=== PATIENT | male | born 1960 | race Caucasian/White ===

== ENCOUNTER 2024-05-02 20:46 | Observation (INO) ==
--- OUTSIDE RECORDS SUMMARY | 2024-05-02 20:51 | External Medical Summary | Summary of Care ---
Author Name Unknown Organization [facility] Address [address] [place] [address] Phone [phone] Care Team Providers Care Aviation Electronic Warfare Operator Name Role Phone Winnie Andre DO Primary Care Provider Reason for Referral * Evaluate & Treat - Unlimited Visits (Within 30 days (routine)) - Authorized Specialty Diagnoses / Procedures Referred By Parvin rodriguez Referred To Contact Dermatology Diagnoses Malignant melanoma of upper extremity, unspecified laterality (HCC) Winnie Andre DO [address] [facility] [address] Antonio Montana MD [address] [place] [id number] Referral ID Status Reason Start Date Expiration Date Visits Requested Visits Authorized [id number] Authorized Specialty Services Required 4 [phone] Question Answer Referral Priority Within 30 days (routine) Where should this appointment be scheduled? [facility] Are you referring the patient for Mohs Surgery and have a current positive skin cancer biopsy result? No What is the reason for the patient referral? Return for previous melanoma Reason for Visit * Reason Onset Date Comments Physical-Exam CPE annual Medication Administration 02/20/2024 Flu an d/or Pneumo Inj Encounter Details Date Type Department Care Team (Late st Contact Info) Description 02/20/2024 3:40 PM EDT [facility] [address] [facility] [address] Winnie Andre, DO [address] [place] [address] Dyslipidemia, goal LDL below 160*; Need for prophylactic vaccination and inoculation against influenza; Essential hypertension with goal blood pressure less than 140/90; Malignant melanoma of upper extremity, unspecified laterality (HCC); BPH without obstruction/lower urinary tract symptoms; Vitamin D deficiency Allergies Active Allergy Reactions Criticality Noted Date Comments Hydrocodone-Acetaminophen Nausea/vomiting 01/26 Oxycodone Hcl Rash Medium 05/05/2008 documented as of this encounter (statuses as of 02/20/2024) Medications Medication Sig Dispensed Refills Start Date End Date Status valACYclovir (VALTREX) 1000 MG TabletIndications:H istory of cold sores At onset of cold sore, take 2 pills then repeat in 12 hours, then off 4 Tab 2 07/24/2018 Active Additional Information Patient not taking.Reported on 02/20/2024 Lisinopril 10 MG Oral Tablet (Prinivil) take 1 tablet by mouth once daily 90 Tablet 3 05/16/2023 Active Atorvastatin Calcium 10 MG Oral Tablet (Lipitor)Indication s:Dyslipidemia, goal LDL below 160 Take 1 Tablet by mouth at bedtime. 90 Tablet 3 05/14/2023 Active Additional Information Patient not taking.Reported on 02/20/2024 documented as of this encounter (statuses as of 02/20/2024) Active Problems Problem Noted Date Diagnosed Date Well adult exam 02/14/2023 BPH without obstruction/lower urinary tract symp toms 02/14/2023 ETD (Eustachian tube dysfunction), bilateral Dyslipidemia, goal LDL below 160 05/28/2017 Essential hypertension with goal blood pressure less than 140/90 03/01/2016 History of basal cell carcinoma 06/21/2015 Stucco keratosis 10/22/2013 Multiple pigmented nevi 10/22/2013 Malignant melanoma of upper limb 05/22/2013 Actinic keratosis 04/15/2013 History of malignant melanoma of skin 04/15/2013 Overview: Hx MM date 04/2013 & 2000, Depth 0.36mm 1 mitotic figure & 2.1 mm respectively , Location Right upper arm & left flank respectively SLN negative on both occasions Calculus of kidney 05/05/2008 ADVANCE DIRECTIVE INFORMATION 09/25/2005 Overview: Booklet given to ptCamilla BARRY MELANOMA TRUNK 01/22/2000 documented as of this encounter (statuses as of 02/20/2024) Resolved Problems Problem Noted Date Diagnosed Date Resolved Date Hemorrhoids, external without complications 05/28/2017 12/21/2019 Neoplasm of uncertain behavior of skin 04/15/2013 03/08/2015 Dyslipidemia, goal to be determined 04/21/2009 05/28/2017 Overview: Per Lipid Taxonomy. Elevated blood pressure, situational 05/02/2005 01/19/2010 PURE HYPERCHOLESTEROLEM 01/30/200104/12 Overview: Per Lipid Taxonomy. documented as of this encounter (statuses as of 02/20/2024) Immunizations Name Administration Dates Next Due COVID-19 mRNA, LNP-s, No Pre serve, 2-Dose Series ([employer]) 10/05/2021,04/28/2021,08/11/2020,2020 COVID-19, MRNA-LNP, 23-24, P F, 30 MCG/0.3 mL, 12 YRS AND ABOVE, IM (PFIZER-Comirnat) 02/20/2023 Covid-19, Mrna, Lnp-s, Pf, B ivalent, 30 Mcg, IM, 12 yrs and above (Pfizer) 05/15/2022 Seasonal Influenza Vac., MDV , IM, 0.5 mL (Fluzone) 03/01/2021,02/24/2015,02/25/2014,2012,02/25/2012 Seasonal Influenza, PF, 6 M & above, IM , (FluLaval or Fluzone) 02/08/2022,01/18/2018 Seasonal Influenza, Quadriva lent, No Preserve, IM 03/10/2023,02/11/2020 Seasonal Influenza, Recombin ant, Trivalent, PF (Flublock) 02/06/2016 Seasonal Influenza, Trivalen t, (IIV3), PF, (Fluzone) 02/20/2024 TD - Tetanus/Diptheria (ADULT) 06/01/2003 TDAP (age 10 and older)(Boostrix) 06/26/2022,04/2012 Zoster Vaccine Recombinant (Shingrix) 12/21/2019 ,01/18/2018 documented as of this encounter Social History Tobacco Use Types Packs/Day Years Used Date Smoking Tobacco: Never Smokeless Tobacco: Never Alcohol Use Standard Drinks/Week Comments Yes 0 (1 standard drink = 0.6 oz pur e alcohol) social PHQ-2 Answer Date Recorded PHQ Adult Total Score 0 02/08/2022 Hunger Vital Sign Answer Date Recorded Within the past 12 months, y ou worried that your food would run out before you got the money to buy more. Never true 02/07/20 24 Within the past 12 months, t he food you bought just didn't last and you didn't have money to get more. Never true 02/07/2024 Childcare Answer Date Recorded Do you feel overwhelmed with taking care of a child, family member or friend? No 02/07/2024 Does your family need help f inding childcare? (Household - for ages 0-17 years) Not on file 02/07/2024 Clothing Answer Date Recorded Have you been unable to get clothing when it was really needed? No 02/07/2024 Is your family able to get c lothes or diapers when needed? (Household - for ages 0-17 years) Not on file 02/07/2024 Personal Safety Answer Date Recorded Do you feel unsafe or have concerns for your saf ety? No 02/07/2024 Do you have concerns for you r family's safety? (Household - for ages 0-17 years) Not on file 02/07/2024 Utilities Answer Date Recorded Do you have trouble paying y our heating, water, or electric bill? No 02/07/2024 Is your family able to pay t he heat, water, or electric bill? (Household - for ages 0-17 years) Not on file 02/07/2024 Does your family have access to good internet? (Household - for ages 0-17 years) Not on file 02/07/2024 Employment Status Answer Date Recorded Are you unemployed or without regular income? No 02/07/2024 Does the household have a re gular source of income? (Household - for ages 0-17 years) Not on file 02/07/2024 Social Connections Answer Date Recorded How often do you feel lonely or isolated from th ose around you? Never 02/07/2024 Financial Resource Strain Answer Date R ecorded Do you have any trouble payi ng for your medications, or do you think you might in the future? No 02/07/2024 Does your family have troubl e paying for medicine? (Household - for ages 0-17 years) Not on file 02/07/2024 Transportation Needs Answer Date Record ed Do you have trouble getting a ride to medical visits or work? (Adult - for ages 18 years and over) Not on file 02/07/2024 Does your family have a hard time getting a ride to doctors visits? (Household - for ages 0-17 years) Not on file 02/07/2024 Has lack of transportation k ept you from medical appointments, meetings, work, or from getting things needed for daily living? Check all that apply. No 02/07/2024 Do you (or your family) have trouble finding or paying for a ride (transportation)? (Household - for ages 0-17 years) Not on file 02/07/2024 Housing Stability Answer Date Recorded Do you currently live in a s helter or have no steady place to sleep at night? No 02/07/2024 Do you think you are at risk of becoming homeless? (Adult - for ages 18 years and over) Not on file 02/07/2024 Does your family worry about paying for your home or becoming homeless? (Household - for ages 0-17 years) Not on file 0 02/07/2024 Are you homeless or worried that you might be in the future? No 02/07/2024 Are you (or your family) german eless or worried that you might be in the future? (Household - for ages 0-17 years) Not on file Food Insecurity Answer Date Recorded Do you need food for this week? No 02/07/2024 Are you able to get enough f ood for your family? (Household - for ages 0-17 years) Not on file 02/07/2024 Does your family need food t his week? (Household - for ages 0-17 years) Not on file 02/07/2024 Do you always have enough fo od for your family? (Household - for ages 0-17 years) Not on file 02/07/2024 Sex and Gender Information Value Date Recorded Sex Assigned at Male 12/21/2019 8:38 AM EDT Gender Identity Male 12/21/2019 8:38 AM EDT Sexual Orientation Straight 12/21/2019 8: 38 AM EDT Job Start Date Occupation Industry Not on file Not on file Not on file documented as of this encounter Last Filed Vital Signs Vital Sign Reading Time Taken Comments Blood Pressure 122/82 02/20/2024 3:00 PM EDT Pulse 64 02/20/2024 3:00 PM EDT Temperature 36.1 C (97 F) 02/20/2024 3:00 PM EDT Respiratory Rate - - Oxygen Saturation 96% 02/20/2024 3:00 PM EDT Inhaled Oxygen Concentration - - Weight 89.7 kg (197 lb 11.2 oz) 02/20/2024 3:00 PM EDT Height 179.1 cm (5' 10.5") 02/20/2024 3:00 PM ED T Body Mass Index 27.97 02/20/2024 3:00 PM EDT documented in this encounter Progress Notes * Winnie Andre, - 02/20/2024 3:40 PM EDT Images from the original note were not included. Assessment and Plan Assessment & Plan History of Present Illness Antonio Tejeda is a 63 year old male that presents for Physical-Exam (CPE annual ) and Medication Administration (Flu and/or Pneumo Inj) History of Present Illness Physical Exam Vitals: 02/20/24 1500 Temp: 36.1 C (97 F) Pulse: 64 SpO2: 96% BP: 122/82 BMI: 27.96 Wrap-Up Follow Up: Return in about 1 year (around 02/19/2025). Time: Total time today was 32 minutes excluding any time spent in the performance of separately billed services. Text in this note was generated using an ambient documentation service. I discussed the use of a device to record and summarize our discussion today. All persons present during the encounter consented to its use. * Aimee Encarnacion LPN - 02/20/2024 3:33 PM EDT PRE - ADMINISTRATION DOCUMENTATION Are you experiencing any cold symptoms or fever? No Have you had Guillain-[place] Syndrome (an illness that causes paralysis) within the last 6 weeks? No Have you had the flu shot in the past? YES Have you ever had a reaction to the flu shot? No Aimee Encarnacion LPN, 02/20/2024 3:33 PM Immunization Administration Documentation Time Out Procedure Performed: Yes Patient Identified (Ask Name/Date of ): Yes Does the patient have a fever greater than 101 degrees today? No Patient allergic to latex? No VFC Stock: No Immunization(s) verified: Yes, Immunization Name: Flu, VIS Sheet(s) given: Yes Verified Side and Site: Yes Verified Shot(s) with Parent(s)/Patient: Yes documented in this encounter Miscellaneous Notes * Addendum Note - Winnie Andre DO - 02/20/2024 4:28 PM EDTAddended by: WINNIE ANDRE on: 02/20/2024 04:28 PM Modules accepted: Orders documented in this encounter Plan of Treatment Upcoming Encounters Date Type Department Care Team (Late st Contact Info) Description 02/25/2025 4:00 PM EDT Office Visit Family [facility] [address] [place] [id number] Winnie Andre DO [address] [place] [address] Scheduled Orders Name Type Priority Associated Diagnoses Orde r Schedule PSA Lab Routine BPH without obstruction/lower urinary tract symptoms Ordered: 02/20/2024 CBC WITH WBC DIFFERENTIAL Lab Routine Essential hypertension with goal blood pressure less than 140/90 Ordered: 02/20/2024 COMPREHENSIVE METABOLIC PANEL Lab Routine Dyslipidemia, goal LDL below 160 Ordered: 02/20/2024 ALBUMIN / CREATININE RATIO, URINE Lab Routine Essential hypertension with goal blood pressure less than 140/90 Ordered: 02/20/2024 LIPID PANEL WITH DIRECT LDL IF TG IS HIGH Lab Routine Dyslipidemia, goal LDL below 160 Ordered: 02/20/2024 25-HYDROXY VITAMIN D Lab Routine Vitamin D deficiency Ordered: 02/20/2024 EKG EKG Routine Essential hypertension with goal blood pressure less than 140/90 Expected: 02/20/2024 (Approximate), Expires: 03/22/2025 Scheduled Referrals Name Type Priority Associated Diagnoses Orde r Schedule DERMATOLOGY REFERRAL OP Referral Within 30 days (routine) Malignant melanoma of upper extremity, unspecified laterality (HCC) Ordered: 02/20/2024 Health Maintenance Due Date Last Done Comments Cologuard 12/12/2004 Fecal Occult Blood Test 12/12/2004 Sigmoidoscopy 12/12/2004 Depression Screening 02/08/2023 02/08/2022 COVID-19 Vaccine ( season) 2024 02/20/2023, 05/15/2022, 10/05/2021, Additional history exists GFR 02/23/2024 02/22/2023, 08/2021, 01/19/2021, Additional history exists Albumin/Creatinine Ratio 02/22/2026 023, 02/13/2022, 01/19/2021, Additional history exists Diabetes Screening 02/22/2026 02/22/2023, 1 , 02/13/2022, Additional history exists Lipid Panel 02/23/2028 02/22/2023, 0 01/2021, 01/08/2020, Additional history exists Colonoscopy 02/12/2029 02/12/2019, 07/2018, 03/02/2011 Colorectal Cancer Screening 02/12/2029 DTap/Tdap Vaccines (3 - Td or Tdap) 06/26/2032 06/26/2022, 03/24/2012, 06/01/2003 Zoster Vaccines Completed 12/21/2019, 01/18/2018 Influenza Vaccine (FLU shot) Completed 02/2024, 03/10/2023, 02/08/2022, Additional history exists HPV (Gardasil) Vaccine Aged Out No lo nger eligible based on patient's age to complete this topic Hepatitis B Vaccine Aged Out No longe r eligible based on patient's age to complete this topic MENINGOCOCCAL (MENACTRA/MENVEO) Aged Out No longer eligible based on patient's age to complete this topic Pneumococcal Vaccine: Pediatrics (0 to 5 Years) and At-Risk Patients (6 to 64 Years) Aged Out No longer eligible based on patient's age to complete this topic documented as of this encounter Medical Devices Not on filedocumented as of this encounter Visit Diagnoses Diagnosis Dyslipidemia, goal LDL below 160- Primary Other and unspecified hyperlipidemia Need for prophylactic vaccination and inoculation against influenza Essential hypertension with goal blood pressure less than 140/90 Malignant melanoma of upper extremity, unspecified laterality (HCC) BPH without obstruction/lower urinary tract symptoms Hypertrophy of prostate without urinary obstruction and other lower urinary tract symptoms (LUTS) Vitamin D deficiency Unspecified vitamin D deficiency documented in this encounter Advance Directives * No Code Status (Latest Code Status on File) Date Activated Date Inactivated Comments 03/20/2004 12:57 PM 03/20/2004 1:57 PM Care Teams Aviation Electronic Warfare Operator Relationship Specialty Start Date End Date Winnie Andre DO [address] [place] [phone] PCP - General Family Medicine 12/03/18 documented as of this encounter
--- OUTSIDE RECORDS SUMMARY | 2024-05-02 20:51 | External Medical Summary | Summary of Care ---
Author Name Unknown Organization [facility] Address [address] [facility] [place] [address] Phone [phone] Care Team Providers Care Fur Dyer Name Role Phone Reynaldo Andre DO Primary Care Provider Reason for Visit * Reason Onset Date Comments Health Maintenance 01/09/2024 Encounter Details Date Type Department Care Team (Late st Contact Info) Description 01/09/2024 Telephone Family Practice [facility] [address] [place] [address] Reynaldo Andre DO [address] [place] [address] Health Maintenance Allergies Active Allergy Reactions Criticality Noted Date Comments Hydrocodone-Acetaminophen Nausea/vomiting 01/26 Oxycodone Hcl Rash Medium 05/05/2008 documented as of this encounter (statuses as of 01/09/2024) Medications Medication Sig Dispensed Refills Start Date End Date Status valACYclovir (VALTREX) 1000 MG TabletIndications:His tory of cold sores At onset of cold sore, take 2 pills then repeat in 12 hours, then off 4 Tab 2 07/24/2018 Active Lisinopril 10 MG Oral Tablet (Prinivil) take 1 tablet by mouth once daily 90 Tablet 3 05/16/2023 Active Atorvastatin Calcium 10 MG Oral Tablet (Lipitor)Indications: Dyslipidemia, goal LDL below 160 Take 1 Tablet by mouth at bedtime. 90 Tablet 3 05/14/2023 Active documented as of this encounter (statuses as of 01/09/2024) Active Problems Problem Noted Date Diagnosed Date [...] 04/15/2013 Overview: Hx MM date 04/2013 & 1999, Depth 0.36mm 1 mitotic figure & 2.1 mm respectively , Location Right upper arm & left flank respectively SLN negative on both occasions Calculus of kidney 05/05/2008 ADVANCE DIRECTIVE INFORMATION 09/25/2005 Overview: Booklet given to pt. BARRY MELANOMA TRUNK 01/22/2000 documented as of this encounter (statuses as of 01/09/2024) Resolved Problems Problem Noted Date Diagnosed Date Resolved Date Hemorrhoids, external without complications 05/28/2017 12/21/2019 Neoplasm of uncertain behavior of skin 04/15/2013 03/08/2015 Dyslipidemia, goal to be determined 04/21/2009 05/28/2017 Overview: Per Lipid Taxonomy. Elevated blood pressure, situational 05/02/2005 01/19/2010 PURE HYPERCHOLESTEROLEM 01/30/200104/12 Overview: Per Lipid Taxonomy. documented as of this encounter (statuses as of 01/09/2024) Immunizations Name Administration Dates Next Due COVID-19 mRNA, LNP-s, No Pre serve, 2-Dose Series ([employer]) 10/05/2021,04/28/2021,08/11/2020,2020 COVID-19, MRNA-LNP, 23-24, P F, 30 MCG/0.3 mL, 12 YRS AND ABOVE, IM (PFIZER-Comirnaty) 02/20/2023 Covid-19, Mrna, Lnp-s, Pf, B ivalent, 30 Mcg, IM, 12 yrs and above (Pfizer) 05/15/2022 Seasonal Influenza, PF, 6 M & above, IM , (FluLaval or Fluzone) 02/08/2022,01/18/2018 Seasonal Influenza, Quadriva lent, No Preserve, IM 03/10/2023,02/11/2020 Seasonal Influenza, Recombin ant, Trivalent, PF (Flublock) 02/06/2016 Seasonal Influenza, Trivalen t, (IIV3), with Preserv, (Fluzone) 03/01/2021,02/24/2015,02/25/2014,2012,02/25/2012 TDAP (age 10 and older)(Boostrix) 06/26/2022,04/2012 Zoster [...] money to buy more. Never true 02/07/20 22 Within the past 12 months, t he food you bought just didn't last and you didn't have money to get more. Never true 02/06/2022 Utilities Answer Date Recorded Do you have trouble paying y our heating, water, or electric bill? (Adult - for ages 18 years and over) Not on file 10/29/2023 Is your family able to pay t he heat, water, or electric bill? (Household - for ages 0-17 years) Not on file 10/29/2023 Does your family have access to good internet? (Household - for ages 0-17 years) Not on file 10/29/2023 Social Connections Answer Date Recorded How often do you feel lonely or isolated from those around you? (Adult - for ages 18 years and over) Not on file 10/29/2023 Sex and Gender Information Value Date Recorded Sex Assigned at Male 12/21/2019 8:38 AM EDT Gender Identity Male 12/21/2019 8:38 AM EDT Sexual Orientation Straight 12/21/2019 8: 38 AM EDT Job Start Date Occupation Industry Not on file Not on file Not on file documented as of this encounter Miscellaneous Notes * Telephone Encounter - Renea Howard LPN - 01/09/2024 11:47 AM EDT Care Gaps Comprehensive Care Outreach Last Office/Telemedicine Visit: 02/14/2023 (in office), Visit date not found (telemedicine) Next Office Visit: 02/20/2024 Hemoglobin AIC Results: No results found for: "HEMOGLOBIN A1C" BP Readings from Last 1 Encounters: 02/14/23 122/64 Reviewed Health Maintenance below: Health Maintenance Topic Date Due Depression Screening 02/08/2023 Influenza Vaccine (FLU shot) (1) 01/12/2024 GFR 02/23/2024 [facility] Will defer labs to pcp to see if he needs anything else so he doesn't make two trips. Care Gap Outreach Action Taken: Outreach not indicated documented in this encounter Plan of Treatment Upcoming Encounters Date Type Department Care Team (Late st Contact Info) Description 02/20/2024 3:40 PM EDT Office Visit Family Practice [facility] [address] [facility] [place] [address] Reynaldo Andre, [address] [place] [address] Health Maintenance Due Date Last Done Comments Cologuard 12/12/2004 Fecal Occult Blood Test 12/12/2004 Sigmoidoscopy 12/12/2004 Depression Screening 02/08/2023 02/08/2022 Influenza Vaccine (FLU shot) (#1) 2024 03/10/2023, 02/08/2022, 03/01/2021, Additional history exists GFR 02/23/2024 02/22/2023, 1008/2021, 01/19/2021, Additional history exists Albumin/Creatinine Ratio 02/22/2026 023, 02/13/2022, 01/19/2021, Additional history exists Diabetes Screening 02/22/2026 02/22/2023, 1 , 02/13/2022, Additional history exists Lipid Panel 02/23/2028 02/22/2023, 01/2021, 01/08/2020, Additional history exists Colonoscopy 02/12/2029 02/12/2019, 07/2018, 03/02/2011 Colorectal Cancer Screening 02/12/2029 DTap/Tdap Vaccines (3 - Td or Tdap) 06/26/2032 06/26/2022, 03/24/2012, 06/01/2003 Zoster Vaccines Completed 12/21/2019, 01/18/2018 COVID-19 Vaccine Completed 02/20/2023, 07/2022, 10/05/2021, Additional history exists HPV (Gardasil) Vaccine Aged [...] Not on filedocumented as of this encounter Advance Directives * No Code Status (Latest Code Status on File) Date Activated Date Inactivated Comments 03/20/2004 12:57 PM 03/20/2004 1:57 PM Care Teams Fur Dyer Relationship Specialty Start Date End Date Reynaldo Andre DO [address] [place] [address] PCP - General Family Medicine 12/03/18 documented as of this encounter
--- OUTSIDE RECORDS SUMMARY | 2024-05-02 20:51 | External Medical Summary | Summary of Care ---
Author Name Unknown Organization [facility] Address [address] [place] [address] Phone [phone] Care Team Providers Care Managing Broker Name Role Phone Winnie Andre DO Primary Care Provider Reason for Referral * Evaluate & Treat - Unlimited Visits (Within 30 days (routine)) - Authorized Specialty Diagnoses / Procedures Referred By Parvin rodriguez Referred To Contact Dermatology Diagnoses Malignant melanoma of upper extremity, unspecified laterality (HCC) Winnie Andre DO [address] [facility] [address] Antonio Montana MD [address] [place] [id number] Referral ID Status Reason Start Date Expiration Date Visits Requested Visits Authorized [id number] Authorized Specialty Services Required 4 [phone] [...] Description 02/20/2024 3:40 PM EDT [facility] [address] [facility] [address] Winnie Andre, DO [address] [place] [address] Dyslipidemia, goal LDL below 160*; Need for [...] mRNA, LNP-s, No Pre serve, 2-Dose Series ([email or web address]) 10/05/2021,04/28/2021,08/11/2020,2020 COVID-19, MRNA-LNP, 23-24, P F, 30 [...] symptoms or fever? No Have you had Guillain-[place] Syndrome (an illness that causes paralysis) within [...] 02/25/2025 4:00 PM EDT Office Visit Family [facility] [address] [address] Winnie Andre DO [address] [place] [address] Scheduled Orders Name Type Priority Associated Diagnoses [...] 12:57 PM 03/20/2004 1:57 PM Care Teams Managing Broker Relationship Specialty Start Date End Date Winnie Andre DO [address] [place] [address] PCP - General Family Medicine 12/03/18 documented as of this encounter
[2024-05-02 21:33] LABS: Basophils # (auto) 0.02 K/uL (0.00-0.20); Basophils % (auto) 0.3 %; Eosinophils % (auto) 1.3 %; Hematocrit (blood only) 39.2 % (42.0-52.0); Hemoglobin 13.6 g/dl (14.0-18.0); Immature Granulocytes # (auto) 0.02 K/uL (0.01-0.20); Immature Granulocytes % (auto) 0.3 %; Lymphocytes % (auto) 19.3 %; Mean Corpuscular Hemoglobin 32.2 pg (25.0-34.0); Mean Corpuscular Hgb Conc 34.7 g/dL (32.0-36.0); Mean Corpuscular Volume 92.7 fL (80.0-100.0); Monocytes % (auto) 10.3 %; Neutrophils # (auto) 5.34 K/uL (1.40-6.50); Neutrophils % (auto) 68.5 %; Platelet Count 194 K/uL (130-400); RDW Coefficient of Variation 12.4 % (11.5-14.5); RDW Standard Deviation 42.2 fL (36.4-46.3); Red Blood Count 4.23 M/uL (4.70-6.10); White Blood Count 7.78 K/ul (4.8-10.8)
--- NOTE | 2024-05-02 21:49 | Emergency Department Note ---
Impression & Plan Cat bite, Cellulitis of left wrist ED Provider Note NAME: ALANA FLORES AGE: 63 SEX: M : 1960 ARRIVES VIA: Walk-In INFORMANT: Patient ED PROVIDER(S): Sourav Ott MD CHIEF COMPLAINT: Cat bite, left hand and forearm redness. PLAN: Disposition: Admit MEDICAL DECISION MAKING: The patient is a pleasant 63-year-old gentleman with a past medical history of hypertension who presents to the emergency department via walk-in for evaluation of left hand/wrist pain, swelling and redness that developed abruptly this afternoon the setting of having been bitten by his girlfriend's cat yesterday who he is taking care of. He reports he was attempting to bring the cat inside and when he picked the cat up it bit him several times. He reports he cleaned the wounds immediately and felt as though they were doing okay until later this afternoon. He denies any fevers, chills, cough, congestion, GI or symptoms. He reports he is able to move his hand around with some discomfort. He reports his tetanus is up-to-date. On evaluation patient is no distress, afebrile with stable vital signs. Patient exhibits 2 puncture sites on the radial aspect of the left wrist with associated erythema warmth and tenderness with erythema tracking approximately with lymphangitic streaking to the proximal forearm. 2 puncture sites on the ulnar aspect of the left wrist are without erythema warmth and tenderness. Patient has full range of motion intact without difficulty. WBC within normal limits. There is no left shift. H/H 13.6/39.2 without prior for comparison. Platelets within normal limits. Chemistry without metabolic acidosis. CRP is mildly elevated at 4.7 and ESR is within normal limits. Procalcitonin is not elevated. X-ray of the left wrist negative for fracture dislocation or foreign bodies. Suspected old ununited fracture of the ulnar styloid is described. There is no gas. Given the patient's preserved range of motion infectious tenosynovitis considered unlikely at this time. However, given the patient's cat bite with evidence of lymphangitic spread patient does agree with plan for admission for IV antibiotics. Treatment initiated with IV Unasyn. Case was discussed with Dr. Durant, [facility] hospitalist, who will evaluate the patient for admission. Further management per admitting team. Triage Nursing notes reviewed and agree them. Prior/external medical records reviewed Vital Signs: reviewed Differential diagnosis: Cellulitis, abscess, MRSA infection, DVT, necrotizing fasciitis, dermatitis, drug eruption, allergic reaction, as well as other pathologies. ER treatment provided: See below. Diagnostics interpreted by me: Cardiac Monitoring: An order for continuous cardiac monitoring was placed and demonstrated normal sinus rhythm, 78 bpm, no ectopy. Laboratory studies: See below Imaging studies: See below Consultation(s): Case was discussed with Dr. Durant, [facility] hospitalist, who will evaluate the patient for admission. HPI: The patient is a pleasant 63-year-old gentleman with a past medical history of hypertension who presents to the emergency department via walk-in for evaluation of left hand/wrist pain, swelling and redness that developed abruptly this afternoon the setting of having been bitten by his girlfriend's cat yesterday who he is taking care of. He reports he was attempting to bring the cat inside and when he picked the cat up it bit him several times. He reports he cleaned the wounds immediately and felt as though they were doing okay until later this afternoon. He denies any fevers, chills, cough, congestion, GI or symptoms. He reports he is able to move his hand around with some discomfort. He reports his tetanus is up-to-date. ROS: See above HPI for pertinent positives & negatives. A total of 10 systems reviewed and were otherwise negative. VITALS:See Below PHYSICAL EXAMINATION: GENERAL: Awake, alert, well-appearing, in no distress HENT: Normocephalic, atraumatic. Oropharynx unremarkable. EYES: Normal conjunctiva. Sclera non-icteric. NECK: Supple. No nuchal rigidity. FROM. No JVD. RESPIRATORY: Clear to auscultation. CARDIAC: Regular rate, normal rhythm. Extremities warm and well perfused. Pulses equal. ABDOMEN: Soft, non-distended. No tenderness to palpation. No rebound or guarding. No masses. MUSCULOSKELETAL: Chest examination reveals no tenderness. The back is symmetrical on inspection without obvious abnormality. There is no CVA tenderness to palpation. 2 puncture sites on the radial aspect of the left wrist with associated erythema warmth and tenderness with erythema tracking approximately with lymphangitic streaking to the proximal forearm. 2 puncture sites on the ulnar aspect of the left wrist are without erythema warmth and tenderness. Patient has full range of motion intact without difficulty. LOWER EXTREMITIES: Calves are equal size bilaterally and non-tender. No edema. No discoloration. NEURO: Normal sensorium. No sensory or motor deficits noted. SKIN: No jaundice noted. Sourav Ott MD Past Med/Surg History Problem List (Updated 05/03/24 @ 07:47 by Sourav Ott MD) Cellulitis of left wrist (Acute) Cat bite (Acute) Medical History Hypertension Social History Smoking Status: Never smoker Hx Alcohol Use: Yes Alcohol type: beer Hx Substance Use: No Preferred Language: Samoan Communication Ability: Effective Multimedia Producer Required: No Beliefs That Will Affect Care: None Current Living Situation: Family Feels Safe at Home: Yes Safety Concerns: Feels Safe At This Time Assistive Devices: None Allergies Allergies Allergy/AdvReac Type Severity Reaction Status Date / Time oxycodone Allergy Mild RASH/ITCH Verified 05/02/24 22:18 hydrocodone Allergy Unknown ` Verified 05/02/24 22:18 Home Meds Home Medications Medication Instructions Recorded Confirmed lisinopril 10 mg tablet 10 mg PO DAILY 05/02/24 05/02/24 Results & Data (ED) Vital Signs Vital Signs - 24 hr 05/02/24 20:48 05/02/24 22:04 05/02/24 22:35 Temperature 36.9 C Temperature Source Temporal Artery Scan Pulse Rate 78 Pulse Rate [Finger] 58 L 60 Pulse Rhythm [Finger] Pulse Strength [Finger] Respiratory Rate 18 16 16 Respiratory Effort / Characteristics Non-Labored Spontaneous Non-Labored Spontaneous Respiratory Depth Normal Normal Respiratory Pattern Blood Pressure 138/81 Blood Pressure [Left Arm] 140/77 Blood Pressure Mean 100 Blood Pressure Mean [Left Arm] 98 Blood Pressure Position [Left Arm] Pulse Oximetry 96 98 99 Oxygen Delivery Method Room Air Room Air Room Air Sepsis Recent Fever Within 48 Hours No Sepsis New/Unexplained Change in Mental Status No Sepsis Action Taken by Nursing No Action Required 05/03/24 00:06 05/03/24 01:16 Temperature Temperature Source Pulse Rate Pulse Rate [Finger] 58 L 55 L Pulse Rhythm [Finger] Regular Pulse Strength [Finger] Normal Respiratory Rate 18 16 Respiratory Effort / Characteristics Non-Labored Respiratory Depth Normal Respiratory Pattern Regular Blood Pressure Blood Pressure [Left Arm] 120/81 108/59 L Blood Pressure Mean Blood Pressure Mean [Left Arm] 94 75 Blood Pressure Position [Left Arm] Sitting Pulse Oximetry 96 98 Oxygen Delivery Method Room Air Room Air Sepsis Recent Fever Within 48 Hours Sepsis New/Unexplained Change in Mental Status Sepsis Action Taken by Nursing Laboratory Data Attestation: I reviewed the patient's lab results. 05/03/24 07:22 05/02/24 21:14 Lab Results 05/02/24 05/02/24 Range/Units 21:14 21:59 WBC 7.78 (4.8-10.8) K/ul RBC 4.23 L (4.70-6.10) M/uL Hgb 13.6 L (14.0-18.0) g/dl Hct 39.2 L (42.0-52.0) % MCV 92.7 (80.0-100.0) fL MCH 32.2 (25.0-34.0) pg MCHC 34.7 (32.0-36.0) g/dL RDW Std Deviation 42.2 (36.4-46.3) fL RDW Coeff of Negra 12.4 (11.5-14.5) % Plt Count 194 (130-400) K/uL MPV 9.0 L (9.4-12.4) fL Immature Gran % (Auto) 0.3 % Neut % (Auto) 68.5 % Lymph % (Auto) 19.3 % Elbert % (Auto) 10.3 % Eos % (Auto) 1.3 % Baso % (Auto) 0.3 % Neut # (Auto) 5.34 (1.40-6.50) K/uL Lymph # (Auto) 1.50 (1.20-3.40) K/uL Elbert # (Auto) 0.80 H (0.11-0.59) K/uL Eos # (Auto) 0.10 (0.00-0.50) K/uL Baso # (Auto) 0.02 (0.00-0.20) K/uL Immature Gran # (Auto) 0.02 (0.01-0.20) K/uL ESR 15 (0-20) mm/hr Sodium 138 (136-145) mmol/L Potassium 4.7 (3.5-5.1) mmol/L Chloride 104 (98-107) mmol/L Carbon Dioxide 29 (21-32) mmol/L Anion Gap 5 (3-11) BUN 24 H (6-23) mg/dl Creatinine 1.09 (0.6-1.4) mg/dl Est Cr Clr Drug Dosing 78.4 ml/min eGFR 75.79 BUN/Creatinine Ratio 22.0 H (10-20) Glucose 103 H (70-99(Fasting)) mg/dl Calcium 8.7 (8.6-10.3) mg/dl Total Bilirubin 0.5 (0.2-1.0) mg/dl AST 18 (13-39) U/L ALT 15 (7-52) U/L Alkaline Phosphatase 65 (34-104) U/L C-Reactive Protein 4.74 H (0-0.5) mg/dl Total Protein 6.8 (6.0-8.3) gm/dl Albumin 4.1 (3.4-5.0) gm/dl Globulin 2.7 (2.5-4.0) gm/dl Albumin/Globulin Ratio 1.5 (0.9-2) Procalcitonin 0.06 (0-0.5) ng/ml Administered Medications Enoxaparin Sodium (Enoxaparin Inj 40 Mg/0.4 Ml Syr) 40 mg SQ Q24H RUBEN Stop: 06/02/24 08:59 Last Admin: 05/03/24 05:41 Dose: Not Given Documented By: RUSSEL Ampicillin Sodium/Sulbactam Sodium (Unasyn) 3,000 mg in 100 mls @ 200 mls/hr IV Q6H RUBEN Stop: 05/10/24 05:59 Last Admin: 05/03/24 05:45 Dose: 200 mls/hr Documented By: RUSSEL Discontinued Medications Acetaminophen (Ofirmev) 1,000 mg in 100 mls @ 400 mls/hr IV NOW STA Stop: 05/02/24 22:00 Last Infusion: 05/02/24 22:18 Dose: Infused Documented By: Admin: 05/02/24 22:01 Dose: 400 mls/hr Documented By: SAHIL Ampicillin Sodium/Sulbactam Sodium (Unasyn) 3,000 mg in 100 mls @ 200 mls/hr IV NOW STA Stop: 12/21/24 22:15 Last Infusion: 05/02/24 22:37 Dose: Infused Documented By: Admin: 05/02/24 22:07 Dose: 200 mls/hr Documented By: SAHIL Ketorolac Tromethamine (Ketorolac Tromethamine 15 Mg/Ml Vial) 15 mg IV NOW STA Stop: 05/02/24 21:47 Last Admin: 05/02/24 22:04 Dose: 15 mg Documented By: SAHIL Imaging Data Radiologist's Impression: Wrist X-Ray 05/02/24 21:46 Exam(s): XR LEFT WRIST, 3+ views EXAM: XR Left Wrist Complete, 3 Views CLINICAL HISTORY: Reason for exam: cat bite infection. TECHNIQUE: Frontal, lateral and oblique views of the left wrist. COMPARISON: No relevant prior studies available. FINDINGS: Bones/joints: No acute fracture. No dislocation. There are hypertrophic degenerative changes. There may be an old ununited fracture of the ulnar styloid process. Soft tissues: Unremarkable. No radiopaque foreign body. IMPRESSION: Hypertrophic degenerative changes. If further evaluation is clinically necessary, consider correlation with MRI. Electronically signed by: Peña Britt MD 05/03/24 01:56 AM Discharge Plan Visit Data Chief Complaint: Animal Bite Stated Complaint: cat left wrist pain ED Provider: Sourav Ott Discharge Problem: Cat bite, Cellulitis of left wrist Patient Disposition: Admitted As Inpatient Discharge Instructions Interventions: ED Discharge Assessment Last Done: 05/03/24 04:14 Discharge Problem: Cat bite Qualifiers: Encounter type: initial encounter Qualified Code(s): W55.01XA - Bitten by cat, initial encounter
[2024-05-02] MEDS: ACETAMINOPHEN 1,000 MG/100 ML VIAL IV STA (22:01)
[2024-05-02] MEDS: KETOROLAC TROMETHAMINE 15 MG/ML VIAL IV STA (22:04)
[2024-05-02] MEDS: AMPICILLIN/SULBACTAM SOD 3,000 MG/100 ML BAG IV STA (22:07)
[2024-05-02 23:19] LABS: Albumin Globulin Ratio 1.5 (0.9-2); Albumin Level 4.1 gm/dl (3.4-5.0); Bilirubin,Total 0.5 mg/dl (0.2-1.0); Calcium 8.7 mg/dl (8.6-10.3); Creatinine Clr Calc Pharmacy 78.4 ml/min; Globulin 2.7 gm/dl (2.5-4.0); Potassium 4.7 mmol/L (3.5-5.1); Total Protein 6.8 gm/dl (6.0-8.3)
--- NOTE | 2024-05-03 01:32 | History & Physical Report ---
Date of Service May 03, 2024 Assessment & Plan (1) Cat bite: Plan: 63-year-old male with past medical history significant for hyperlipidemia, hypertension, history of calculus of kidney: History of BPH presents with cat bite on his left wrist yesterday morning. Having painful left wrist movements. There is a red streak going down into the left forearm. Denies any fevers. Denies any chest pain or shortness of. No nausea or vomiting. No abdominal pa in. Normal bowel and bladder movements. No runny nose or sore throat. No cough. Hemodynamics are okay. Cat bite of left wrist With lymphatic spread Empiric Unasyn Will follow wrist x-ray Close monitor in the hospital Hypertension Lisinopril DVT prophylaxis Lovenox Disposition Medical floor Full code. History of Present Illness Chief Complaint: Cat bite Primary Care Provider: Reynaldo Andre DO 63-year-old male with past medical history significant for hyperlipidemia, hypertension, history of calculus of kidney: History of BPH presents with cat bite on his left wrist yesterday morning. Having painful left wrist movements. There is a red streak going down into the left forearm. Denies any fevers. Denies any chest pain or shortness of. No nausea or vomiting. No abdominal pain. Normal bowel and bladder movements. No runny nose or sore throat. No cough. Hemodynamics are okay. Past medical history. As mentioned above Past surgical history. Left axilla SLNB lymph node biopsy. Colonoscopy with biopsy. Cystourethroscopy scope with stone removal. Cystoscopy with insertion of stent placement. Wide excision of melanoma of right upper arm and right axillary sentinel lymph node biopsy. Social history. No smoking. Alcohol occasional. No drug use. Family history. Maternal aunt had melanoma. Father had high cholesterol. Hypertension. Mother had hypertension. High cholesterol. Paternal grandfather had heart disease Allergies Allergy/AdvReac Type Severity Reaction Status Date / Time oxycodone Allergy Mild RASH/ITCH Verified 05/02/24 22:18 hydrocodone Allergy Unknown ` Verified 05/02/24 22:18 Home Medications Medication Instructions Recorded Confirmed Type lisinopril 10 mg tablet 10 mg PO DAILY 05/02/24 05/02/24 History Past Med/Surg History Problem List (Updated 05/03/24 @ 07:47 by Sourav Ott MD) Cellulitis of left wrist (Acute) Cat bite (Acute) Medical History Hypertension Social History Smoking Status: Never smoker Hx Alcohol Use: Yes Alcohol type: beer Hx Substance Use: No Preferred Language: Georgian Communication Ability: Effective Outreach Team Member Required: No Beliefs That Will Affect Care: None Current Living Situation: Family Feels Safe at Home: Yes Safety Concerns: Feels Safe At This Time Assistive Devices: None Review of Systems Review of Systems: All systems reviewed & are unremarkable except as noted in HPI & below Physical Exam Physical Exam: General- Not in distress Head- atraumatic Eyes- PERRL. ENT- oropharynx clear Neck- supple, no JVD. Lungs- clear to auscultation no wheezing or crackles Heart- regular rate and rhythm; no murmur, no gallop. Abdomen- normal bowel sounds, soft, nontender, no distension Extremities- left wrist plantar aspect benjy bite seen with erythema streaks going into fore arm. painful left wrist movements. Neuro- alert, oriented PERRL, no facial palsy; no dysarthria; Results & Data Results & Data Vital Signs (Past 12 Hours) Vital Signs Temp Pulse Pulse Resp BP BP Pulse Ox 05/03/24 01:16 55 L 16 108/59 L 98 05/03/24 00:06 58 L 18 120/81 96 05/02/24 22:35 60 16 99 05/02/24 22:04 58 L 16 140/77 98 05/02/24 20:48 36.9 C 78 18 138/81 96 O2 Del Method 05/03/24 01:16 Room Air 05/03/24 00:06 Room Air 05/02/24 22:35 Room Air 05/02/24 22:04 Room Air 05/02/24 20:48 Room Air Diagnostic Findings Laboratory Results WBC 7.78 K/ul (4.8-10.8) 05/02/24 21:14 RBC 4.23 M/uL (4.70-6.10) L 05/02/24 21:14 Hgb 13.6 g/dl (14.0-18.0) L 05/02/24 21:14 Hct 39.2 % (42.0-52.0) L 05/02/24 21:14 MCV 92.7 fL (80.0-100.0) 05/02/24 21:14 MCH 32.2 pg (25.0-34.0) 05/02/24 21:14 MCHC 34.7 g/dL (32.0-36.0) 05/02/24 21:14 RDW Std Deviation 42.2 fL (36.4-46.3) 05/02/24 21:14 RDW Coeff of Negra 12.4 % (11.5-14.5) 05/02/24 21:14 Plt Count 194 K/uL (130-400) 05/02/24 21:14 MPV 9.0 fL (9.4-12.4) L 05/02/24 21:14 Immature Gran % (Auto) 0.3 % 05/02/24 21:14 Neut % (Auto) 68.5 % 05/02/24 21:14 Lymph % (Auto) 19.3 % 05/02/24 21:14 Liberty % (Auto) 10.3 % 05/02/24 21:14 Eos % (Auto) 1.3 % 05/02/24 21:14 Baso % (Auto) 0.3 % 05/02/24 21:14 Neut # (Auto) 5.34 K/uL (1.40-6.50) 05/02/24 21:14 Lymph # (Auto) 1.50 K/uL (1.20-3.40) 05/02/24 21:14 Liberty # (Auto) 0.80 K/uL (0.11-0.59) H 05/02/24 21:14 Eos # (Auto) 0.10 K/uL (0.00-0.50) 05/02/24 21:14 Baso # (Auto) 0.02 K/uL (0.00-0.20) 05/02/24 21:14 Immature Gran # (Auto) 0.02 K/uL (0.01-0.20) 05/02/24 21:14 ESR 15 mm/hr (0-20) 05/02/24 21:59 Sodium 138 mmol/L (136-145) 05/02/24 21:14 Potassium 4.7 mmol/L (3.5-5.1) 05/02/24 21:14 Chloride 104 mmol/L (98-107) 05/02/24 21:14 Carbon Dioxide 29 mmol/L (21-32) 05/02/24 21:14 Anion Gap 5 (3-11) 05/02/24 21:14 BUN 24 mg/dl (6-23) H 05/02/24 21:14 Creatinine 1.09 mg/dl (0.6-1.4) 05/02/24 21:14 Est Cr Clr Drug Dosing 78.4 ml/min 05/02/24 21:14 eGFR 75.79 05/02/24 21:14 BUN/Creatinine Ratio 22.0 (10-20) H 05/02/24 21:14 Glucose 103 mg/dl (70-99(Fasting)) H 05/02/24 21:14 Calcium 8.7 mg/dl (8.6-10.3) 05/02/24 21:14 Total Bilirubin 0.5 mg/dl (0.2-1.0) 05/02/24 21:14 AST 18 U/L (13-39) 05/02/24 21:14 ALT 15 U/L (7-52) 05/02/24 21:14 Alkaline Phosphatase 65 U/L (34-104) 05/02/24 21:14 C-Reactive Protein 4.74 mg/dl (0-0.5) H 05/02/24 21:59 Total Protein 6.8 gm/dl (6.0-8.3) 05/02/24 21:14 Albumin 4.1 gm/dl (3.4-5.0) 05/02/24 21:14 Globulin 2.7 gm/dl (2.5-4.0) 05/02/24 21:14 Albumin/Globulin Ratio 1.5 (0.9-2) 05/02/24 21:14 Procalcitonin 0.06 ng/ml (0-0.5) 05/02/24 21:59 Code Status & VTE Plan VTE Prophylaxis Plan VTE Prophylaxis will be ordered: Yes
--- NOTE | 2024-05-03 01:57 | XRay Report ---
Exam(s): XR LEFT WRIST, 3+ views EXAM: XR Left Wrist Complete, 3 Views CLINICAL HISTORY: Reason for exam: cat bite infection. TECHNIQUE: Frontal, lateral and oblique views of the left wrist. COMPARISON: No relevant prior studies available. FINDINGS: Bones/joints: No acute fracture. No dislocation. There are hypertrophic degenerative changes. There may be an old ununited fracture of the ulnar styloid process. Soft tissues: Unremarkable. No radiopaque foreign body. IMPRESSION: Hypertrophic degenerative changes. If further evaluation is clinically necessary, consider correlation with MRI. Electronically signed by: Peña Britt MD 05/03/24 01:56 AM
[2024-05-03] MEDS ORDERED: POLYETHYLENE (MIRALAX) 17 GM PACK PO PRN (04:31)
[2024-05-03] MEDS ORDERED: ACETAMINOPHEN 325 MG TAB PO PRN (04:31)
[2024-05-03] MEDS: ENOXAPARIN INJ 40 MG/0.4 ML SYR SQ SCH (05:41)
[2024-05-03] MEDS: AMPICILLIN/SULBACTAM SOD 3,000 MG/100 ML BAG IV SCH (05:45)
[2024-05-03 07:36] LABS: Basophils # (auto) 0.02 K/uL (0.00-0.20); Basophils % (auto) 0.4 %; Eosinophils % (auto) 1.8 %; Hematocrit (blood only) 37.1 % (42.0-52.0); Hemoglobin 12.7 g/dl (14.0-18.0); Immature Granulocytes # (auto) 0.01 K/uL (0.01-0.20); Immature Granulocytes % (auto) 0.2 %; Lymphocytes % (auto) 22.1 %; Mean Corpuscular Hemoglobin 31.6 pg (25.0-34.0); Mean Corpuscular Hgb Conc 34.2 g/dL (32.0-36.0); Mean Corpuscular Volume 92.3 fL (80.0-100.0); Mean Platelet Volume 8.7 fL (9.4-12.4); Monocytes # (auto) 0.71 K/uL (0.11-0.59); Monocytes % (auto) 13.1 %; Neutrophils % (auto) 62.4 %; Platelet Count 153 K/uL (130-400); RDW Coefficient of Variation 12.4 % (11.5-14.5); RDW Standard Deviation 42.5 fL (36.4-46.3); Red Blood Count 4.02 M/uL (4.70-6.10); White Blood Count 5.44 K/ul (4.8-10.8)
[2024-05-03 07:47] VITALS: PULSE 60
[2024-05-03 07:56] LABS: BUN Creatinine Ratio 24.2 (10-20); Calcium 8.2 mg/dl (8.6-10.3); Creatinine Clr Calc Pharmacy 93.7 ml/min; Magnesium 2.1 mg/dl (1.7-2.4)
[2024-05-03] MEDS: lisinopril 10 MG TAB PO SCH (08:33)
--- NOTE | 2024-05-03 08:55 | Communication Note ---
Date of Service: May 03, 2024 Seen and examined at bedside. Is comfortable lying in the bed; not in distress Reports mild pain in her left forearm On physical examination; Constitutional: Alert oriented x 3; not in distress. Respiratory: normal respiratory effort, lungs clear to auscultation, no wheeze, rales, rhonchi. Normal insp/exp effort, no accessory muscle use Cardiovascular: RRR, no murmur, no edema Vessels: no JVD or carotid bruit Chest: normal inspection of chest Abdomen: normal bowel sounds, soft, nontender, no hepatosplenomegaly Musculoskeletal: Palmar aspect with cat bite with erythematous streaks going to the forearm. Neurologic: PERRL, EOMI, accommodation nl, no face palsy, no dysarthria CN's II- XI intact bilaterally and moves all extremities Psychiatric: A+Ox3, euthymic affect Assessment/plan Cat bite Patient presented to the hospital with cat bite a day prior to admission. No leukocytosis ESR within normal limits, CRP mildly elevated to 4.7 Continue on Unasyn. Await clinical improvement. Possible discharge in next few days on Augmentin Hypertensioncontinue lisinopril Please note the above document was generated using voice recognition software. It may contain grammatical, syntax or spelling errors. Any formal questions or concerns about the content, text or information contained within the body of this dictation should be directly addressed to the provider for clarification
--- NOTE | 2024-05-03 11:24 | Discharge Summary ---
Date of Service May 03, 2024 Admission HPI Per Admitting Provider 63-year-old male with past medical history significant for hyperlipidemia, hypertension, history of calculus of kidney: History of BPH presents with cat bite on his left wrist yesterday morning. Having painful left wrist movements. There is a red streak going down into the left forearm. Denies any fevers. Denies any chest pain or shortness of. No nausea or vomiting. No abdominal pain. Normal bowel and bladder movements. No runny nose or sore throat. No cough. Hemodynamics are okay. Past medical history. As mentioned above Past surgical history. Left axilla SLNB lymph node biopsy. Colonoscopy with biopsy. Cystourethroscopy scope with stone removal. Cystoscopy with insertion of stent placement. Wide excision of melanoma of right upper arm and right axillary sentinel lymph node biopsy. Social history. No smoking. Alcohol occasional. No drug use. Family history. Maternal aunt had melanoma. Father had high cholesterol. Hypertension. Mother had hypertension. High cholesterol. Paternal grandfather had heart disease Admission Exam Per Admitting Provider General- Not in distress Head- atraumatic Eyes- PERRL. ENT- oropharynx clear Neck- supple, no JVD. Lungs- clear to auscultation no wheezing or crackles Heart- regular rate and rhythm; no murmur, no gallop. Abdomen- normal bowel sounds, soft, nontender, no distension Extremities- left wrist plantar aspect benjy bite seen with erythema streaks going into fore arm. painful left wrist movements. Neuro- alert, oriented PERRL, no facial palsy; no dysarthria; Principal Diagnosis Cat bite Discharge Exam General- Not in distress Head- atraumatic Eyes- PERRL. ENT- oropharynx clear Neck- supple, no JVD. Lungs- clear to auscultation no wheezing or crackles Heart- regular rate and rhythm; no murmur, no gallop. Abdomen- normal bowel sounds, soft, nontender, no distension Extremities-Cat bite gonzalez are seen on left wrist; no erythema seen (was reported on admission). Left wrist movement intact without any pain. Neuro- alert, oriented PERRL, no facial palsy; no dysarthria; Discharge Data Allergies Allergy/AdvReac Type Severity Reaction Status Date / Time oxycodone Allergy Mild RASH/ITCH Verified 05/02/24 22:18 hydrocodone Allergy Unknown ` Verified 05/02/24 22:18 Consultations 05/02/24 22:27 ED Decision to Admit Stat Hospital Course (1) Cat bite: 63-year-old male with past medical history significant for hyperlipidemia, hypertension, history of calculus of kidney: History of BPH presents with cat bite on his left wrist that happened a day prior to admission. Patient was admitted to the medical floor for IV antibiotics. Overnight, patient reported significant improvement in pain/erythema at the bite site. The reported red streaks going to the lymphatics were not present on examination. Patient was given 4 doses of Unasyn inpatient; and was discharged on Augmentin to be taken for 7 days. Please note the above document was generated using voice recognition software. It may contain grammatical, syntax or spelling errors. Any formal questions or concerns about the content, text or information contained within the body of this dictation should be directly addressed to the provider for clarification Total Time Total Time Spent Total Time Spent (In Minutes): 45 Discharge Plan Discharge Items Patient Disposition: Home - Self-Care Reason For Visit: CAT BITE, CELLULITIS Discharge Diagnosis: Cat bite Activity: Resume your previous activity Non-emergency contact: Primary Care Provider Call non-emergency contact if: you have any medication questions and your symptoms worsen Follow-up/Referrals: Reynaldo Andre, [Primary Care Provider] - Diet: Regular Addtl Attending Provider Instructions: You were admitted to the hospital due to a cat bite. You are treated with IV antibiotic during the hospitalization. To complete the antibiotic course; you are prescribed Augmentin to be taken twice a day for 7 days. Pending Studies at Discharge: No Stand-Alone Forms: My [facility], Smoking Cessation Medications and DC Order Prescriptions: New amoxicillin-pot clavulanate 875-125 mg tablet 1 tab PO BID 7 Days Qty: 14 0RF Continued lisinopril 10 mg tablet 10 mg PO DAILY Discharge Orders: Discharge Order (Routine); Ordered 05/03/24 Ordered By: Brian Ventura Admission Data Admit Date/Time: 05/03/24 01:24 Attending Provider: Brian Ventura Admit Provider: Fox Durant Primary Care Provider: Reynaldo Andre Other Providers: Fox Durant
[2024-05-03 11:33] VITALS: BP 132/74; RESP 18; TEMP 97.5; O2SAT 100
== END 2024-05-03 17:50 | disposition home or self-care (01) | DRG 605 ==
LOC: ED 20:46 → 3E 05-03 01:24 → INTOOBSV 05-03 01:24 → 3E 05-03 04:14